=== PATIENT | female | born 1995 | race Caucasian/White ===

== ENCOUNTER → 2020-10-12 15:05 | Outpatient (BNVA) | payer BC, SELFPAY | PROVIDERS: Family Provider Family Medicine; Visit Provider Nurse Practitioner Women's Health | DX: Z01.419 Encounter for gynecological examination (general) (routine) without abnormal findings (principal) | CPT/HCPCS: 88175 ==

== ENCOUNTER 2022-03-29 14:40 | Inpatient (IN) | payer MEDICAID, SELFPAY ==
[2022-03-29] VITALS (38 sets, daily range): BP systolic 94–147; BP diastolic 54–82; PULSE 76–126; TEMP 36.9; O2SAT 93–100; BMI 28.7
[2022-03-29] MEDS: miSOPROStol 100 mcg tablet 25 MCG SUBLINGUAL ×2 (15:20→19:28)
[2022-03-29 15:37] LABS: Basophils % 0.2 %; Eosinophils % 0.2 %; Hematocrit 38.1 % (37.0-47.0); Hemoglobin 12.7 g/dL (11.5-15.3); Lymphocytes # 1.8 10^3/uL (0.8-4.8); Lymphocytes % 16.2 %; Mean Corpuscular HGB Conc 33.3 g/dL (30.0-36.0); Mean Corpuscular Hemoglobin 32.3 pg (28.0-34.0); Mean Corpuscular Volume 96.9 fl (81-99); Mean Platelet Volume 11.5 fL (7.4-10.4); Monocytes # 0.7 10^3/uL (0.2-0.9); Neutrophils # 8.65 10^3/uL (1.8-7.7); Neutrophils % 76.9 %; Nucleated Red Blood Cells % 0 %; Platelet Count 208 10^3/cmm (130-400); Red Blood Count 3.93 10^6/uL (4.1-5.3); Red Cell Distribution Width 14.3 % (12.1-15.1); White Blood Count 11.2 10^3/uL (4.0-10.0)
--- NOTE | 2022-03-29 18:11 | PM.OPHPUD ---
Labor & Delivery H&P Update Date of Procedure: March 29, 2022 Date H&P Performed: 03/27/22 Changes to previous documentation: Spontaneous rupture of membranes Admission Diagnosis: 26-year-old 2 para 1 at 37 weeks estimated gestational age presenting with spontaneous rupture of membranes Other information: The patient is an otherwise healthy 26-year-old 2 para 1-0-0-1 female who has had an unremarkable . Her blood type is O+. Her antibody screen is negative. She passed her glucose screen. She is GBS negative. She is rubella immune. The remainder of her labs are within normal limits. Her membranes were ruptured just prior to arrival to hospital. Related Problem List Diagnoses (1) 37 weeks gestation of : (2) Spontaneous rupture of membranes: Cytotec 25 mcg sublingual has been given. We will consider further augmentation of labor as needed.
[2022-03-29] MEDS: lactated ringers 1,000 ML 999 ML IV (20:18)
--- NOTE | 2022-03-29 20:48 | ANES.PREANE2 ---
Pre-Anesthetic Assessment Height/Weight: Height 1.68 m Weight 80.739 kg Pulse BP 82 103/64 03/29/22 20:25 03/29/22 20:25 Preop Diagnosis: labor pain epidural Familial anesthetic complications: none Was Beta Machelle taken within 24 hours: N/A Was Clonidine taken within 24 hours: N/A Social No alcohol and No tobacco Exam alert, oriented x 3, clear to auscultation bilaterally and regular rate & rhythm Airway Submandibular: within normal limits Cervical ROM: within normal limits Mallampati: Class II Dentition: full Pulmonary None reported CV/HEM None reported None reported Hepatic None reported GI None reported Metabolic None reported Musc/skel None reported Neuropsych None reported Anesthetic Plan ASA status: 2 Anesthesia: Regional (specify below) Risk of > 500 ml blood loss (7ml/kg in children): No Medications/Allergies Home Medications Medication Instructions Recorded Confirmed Last Taken Type No Known Home Medications 09/24/20 10/12/20 Unknown History Allergies Allergy/AdvReac Type Severity Reaction Status Date / Time amoxicillin Allergy ALGY-Hives Verified 10/12/20 14:34 Penicillins Allergy ALGY-Hives Verified 10/12/20 14:34 Current Medications Generic Name Dose Route Start Last Admin Trade Name Freq PRN Reason Stop Dose Admin Lactated Ringer's 1,000 mls @ 999 mls/hr 03/29/22 20:03 03/29/22 20:18 Lactated Ringers IV 999 mls/hr .Q1H1M PRN Administration PAIN PFSH Anesthesia Medical History (Updated 03/29/22 @ 18:16 by Drew Mo MD) No pertinent past medical history neghx: htn,dm,thyroid,dvt/pe Surgical History (Updated 10/12/20 @ 14:56 by Niharika Antony APN, FRANCISCA) History of surgical procedure on mouth age 3----this procedure had to be done 3 times as growth returned however she was told it was not malignant. 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 Alcohol use: Occasional Drug use: denies Female Reproductive History : 2 Data Anesthesia : 03/29/22 14:55 Short CBC 03/29/22 Range/Units 14:55 WBC 11.2 H (4.0-10.0) 10^3/uL Hgb 12.7 (11.5-15.3) g/dL Hct 38.1 (37.0-47.0) % MCV 96.9 (81-99) fl Plt Count 208 (130-400) 10^3/cmm Neut % (Auto) 76.9 % Neut # (Auto) 8.65 H (1.8-7.7) 10^3/uL Cardiac Studies: No Data to Display
--- NOTE | 2022-03-29 21:27 | P.ANES_ITS ---
Anesthesia Procedures Procedure/Date: 03/29/22 epidural Procedure Narrative: epidural complete, bolus given, epidural pump initiated with CONSUMER INSIGHTS INTERN education given, vitals taken during procedure using OBIX system and satisfactory throughout, patient admits to decrease pain, report of procedure to OB RN Epidural: Time Out Performed: Yes Consents Signed: Procedure Consent Consent: requested by attending/covering physician, from patient, risks and benefits reviewed and patient agrees to proceed Lumbar Level: L3-L4 Epidural position: sitting Epidural procedure: sterile prep of area, 1% lidocaine to numb the area (3 mL), 18 g needle, negative for paresthesia passed, neg for paresthesia, test dose given, 1.5% xylocaine 1:200k epi (5 mL), 0.2% Ropivacaine bolus ml (5 mL), placed PCEA, no systemic response, sterile dressing applied, L.U.D. no apparent complications and 0.2% Ropiavacaine @ mls/hr (13 mL/hr)
[2022-03-29] MEDS: dextrose 5%-lactated ringers 1,000 ML 125 ML IV (21:40)
[2022-03-29] MEDS: oxytocin 30 UNIT/500 ML BAG 600 UNIT IV (21:54)
--- NOTE | 2022-03-29 22:09 | P.PCNOB_ITS ---
Delivery Note: Date of delivery: March 29, 2022 Pre-delivery diagnoses: 26-year-old 2 para 1-0-0-1 at 37 weeks presenting with spontaneous rupture of membranes Post-delivery diagnoses: Status post spontaneous vaginal delivery Procedure: Spontaneous vaginal delivery Delivering Physician: Drew Mo Estimated blood loss (mL): 75 Pre-Delivery Course: The patient presented to the hospital within an hour of having spontaneous rupture of membranes. She was given Cytotec 25 mcg x 2. An epidural was placed. Immediately after the epidural she was noted to be complete. heart tones were typically category 1 throughout her labor process. Delivery: DELIVERY: The patient progressed to complete without difficulty. She delivered a female with a weight of 6 pounds 0 ounces with Apgars of 9, 9. The baby was delivered from the MARTHA position and placed on the mother's abdomen. The cord was then clamped and cut. There was no nuchal cord. There was no meconium. The placenta and 3 vessel cord were delivered intact shortly thereafter. The perineum and vaginal vault were carefully examined. A first- degree posterior midline tear was noted which was repaired with a single subcuticular etearf-wa-brjwo stitch. Both the mother and the baby were in stable condition. Post-Delivery Status: Good History History History 1 Term 1 Miscarriages/Ectopic 0 0 Living Children 1 A&P Assessment and plan (1) Spontaneous vaginal delivery: I anticipate routine care. Status: Acute Coding Level of Care Code Acute Cath Lab Radiological Technologist for Chg Fwd Diagnoses Spontaneous vaginal delivery O80
[2022-03-30] VITALS (12 sets, daily range): BP systolic 102–131; BP diastolic 58–90; PULSE 72–108; RESP 16–17; TEMP 36.6–37.1; O2SAT 97–98
[2022-03-30] MEDS: benzocaine-menthol 78 gm Canister 1 SPRAY TOPICAL (01:20)
[2022-03-30] MEDS: lanolin oint 7 gm 1 APPLIC TOPICAL (01:20)
[2022-03-30] MEDS: HYDROcodone-acetaminophen 5-325 mg Tablet PO (03:11)
[2022-03-30] MEDS: ibuprofen 800 mg tablet PO ×3 (09:27→20:18)
[2022-03-30] MEDS: docusate sodium 100 mg Capsule PO ×2 (09:27→17:43)
[2022-03-30] MEDS: prenatal vitamin Capsule 1 CAP PO (09:27)
--- NOTE | 2022-03-30 10:06 | P.DS_ITS ---
Discharge Providers EMOTIONAL DISABILITIES TEACHER Date of Admission: 03/29/22 14:40 Date of Discharge: 03/30/22 Attending Provider at Admission: Drew Mo MD Attending Provider at Discharge: Drew Mo MD Diagnoses at Discharge Discharge Diagnosis (1) Spontaneous vaginal delivery: Status: Acute (2) 37 weeks gestation of : Status: Acute (3) Spontaneous rupture of membranes: Status: Acute Reason for Visit Reason for Visit: ROM Hospital Course Hospital Course The patient presented to the hospital with spontaneous rupture of membranes which was confirmed with nitrazine strips. She is noted be grossly ruptured. She was placed on Cytotec 25 mcg sublingual. She progressed to complete. An epidural had been placed shortly before delivery. Her delivery was unremarkable. She had first-degree posterior midline tear. Her course was also unremarkable. She breast-fed well. Her pain was well controlled. Her bleeding was within normal limits. Information Peripartum Data: Delivery Method: Vaginal Physical Exam Narrative: The patient is alert. She appears comfortable. Her heart has a regular rate and rhythm with no murmurs appreciated. Lungs are clear to auscultation bilaterally. Her fundus is firm and below the umbilicus. History History History 1 Term 1 Miscarriages/Ectopic 0 0 Living Children 1 Discharge Data Studies Completed and Pending Pending at discharge Category Date Time Status Hemagram Timed Lab 03/30/22 10:07 Uncollected Laboratory Results WBC 11.2 10^3/uL (4.0-10.0) H 03/29/22 14:55 RBC 3.93 10^6/uL (4.1-5.3) L 03/29/22 14:55 Hgb 12.7 g/dL (11.5-15.3) 03/29/22 14:55 Hct 38.1 % (37.0-47.0) 03/29/22 14:55 MCV 96.9 fl (81-99) 03/29/22 14:55 MCH 32.3 pg (28.0-34.0) 03/29/22 14:55 MCHC 33.3 g/dL (30.0-36.0) 03/29/22 14:55 RDW 14.3 % (12.1-15.1) 03/29/22 14:55 Plt Count 208 10^3/cmm (130-400) 03/29/22 14:55 MPV 11.5 fL (7.4-10.4) H 03/29/22 14:55 Neut % (Auto) 76.9 % 03/29/22 14:55 Lymph % (Auto) 16.2 % 03/29/22 14:55 [place] % (Auto) 6.0 % 03/29/22 14:55 Eos % (Auto) 0.2 % 03/29/22 14:55 Baso % (Auto) 0.2 % 03/29/22 14:55 Neut # (Auto) 8.65 10^3/uL (1.8-7.7) H 03/29/22 14:55 Lymph # (Auto) 1.8 10^3/uL (0.8-4.8) 03/29/22 14:55 [place] # (Auto) 0.7 10^3/uL (0.2-0.9) 03/29/22 14:55 Eos # (Auto) 0.0 10^3/uL (0.0-0.8) 03/29/22 14:55 Baso # (Auto) 0.0 10^3/uL (0.0-0.1) 03/29/22 14:55 Nucleated RBC % (auto) 0 % 03/29/22 14:55 Nucleated RBCs # 0.0 /100WBC 03/29/22 14:55 Vitals Last Vital Signs Temp 98.0 F 03/30/22 09:28 Pulse 88 03/30/22 09:28 Resp 17 03/30/22 09:28 BP 116/72 03/30/22 09:28 Pulse Ox 97 03/30/22 09:28 Discharge Plan Discharge Patient Disposition: Home Condition: Stable Prescriptions: New ibuprofen 800 mg Tablet 800 mg PO TID Qty: 45 0RF -U 106.5-1 mg Capsule 1 cap PO DAILY Qty: 100 3RF Discharge Orders: Discharge Order (Routine); Ordered 03/30/22 Ordered By: Drew Mo Referrals: Drew Mo MD [Physician] - 6 Weeks Discharge Diet: Usual diet Discharge Activity: Limit activity as instructed Discharge Attestations EMOTIONAL DISABILITIES TEACHER Time Spent in Discharge Care*: less than 30 min Specific Discharge Activities: Specific discharge activities: educating patient Coding Level of Care Code Acute Tag Writer for Chg Fwd Diagnoses Spontaneous vaginal delivery O80 37 weeks gestation of Z3A.37 Spontaneous rupture of membranes
[2022-03-30 10:36] LABS: Hematocrit 39.4 % (37.0-47.0); Hemoglobin 12.9 g/dL (11.5-15.3); Mean Corpuscular HGB Conc 32.7 g/dL (30.0-36.0); Mean Corpuscular Hemoglobin 32.3 pg (28.0-34.0); Mean Corpuscular Volume 98.5 fl (81-99); Mean Platelet Volume 11.5 fL (7.4-10.4); Platelet Count 188 10^3/cmm (130-400); Red Cell Distribution Width 14.3 % (12.1-15.1); White Blood Count 16.9 10^3/uL (4.0-10.0)
--- NOTE | 2022-04-01 10:40 | ANE.PACU2 ---
Inpatient post-anesthesia follow up: Airway intact: Yes Vital signs: Temperature 98.3 F Pulse Rate 81 Respiratory Rate 16 Blood Pressure 115/81 Pulse Oximetry 98 Oxygen Delivery Me thod Room Air Oxygen Flow Rate Fraction of Inspir ed Oxygen Hydration adequate: Yes Nausea and vomiting: No Pain level: 2 Mental status: Baseline
== END 2022-03-30 23:25 | disposition home or self-care (01) | DRG 807 ==
LOC: OPOB 03-30 09:02 → OBGYN 03-30 09:03
PROVIDERS: Admitting Provider Family Medicine; Visit Provider Family Medicine
DX: O70.0 First degree perineal laceration during delivery (principal); Z37.0 Single live birth; O99.334 Smoking (tobacco) complicating childbirth; Z3A.37 37 weeks gestation of pregnancy; Z88.0 Allergy status to penicillin
CPT/HCPCS: 12345; 36415; 59025; 59409; 85025; 85027; 99211; J2795

== ENCOUNTER 2023-02-12 10:18 | Outpatient (CLI) | payer MEDICAID, SELFPAY ==
[2023-02-12 10:35] LABS: Erythrocyte Sedimentation Rate < 1 mm/hr (0-15)
[2023-02-12 10:38] LABS: Basophils # 0.1 10^3/uL (0.0-0.1); Basophils % 0.7 %; Eosinophils # 0.1 10^3/uL (0.0-0.8); Hematocrit 42.9 % (37.0-47.0); Hemoglobin 13.7 g/dL (11.5-15.3); Lymphocytes # 2.5 10^3/uL (0.8-4.8); Lymphocytes % 25.9 %; Mean Corpuscular HGB Conc 31.9 g/dL (30.0-36.0); Mean Corpuscular Volume 94.1 fl (81-99); Mean Platelet Volume 11.7 fL (7.4-10.4); Monocytes # 0.6 10^3/uL (0.2-0.9); Monocytes % 6.3 %; Neutrophils # 6.24 10^3/uL (1.8-7.7); Neutrophils % 65.9 %; Nucleated Red Blood Cells % 0 %; Platelet Count 240 10^3/cmm (130-400); Red Blood Count 4.56 10^6/uL (4.1-5.3); Red Cell Distribution Width 13.6 % (12.1-15.1); White Blood Count 9.5 10^3/uL (4.0-10.0)
[2023-02-12 11:24] LABS: Alanine Aminotransferase 15 U/L (0-33); Albumin Level 4.6 g/dL (3.5-5.2); Alkaline Phosphatase 62 U/L (35-105); Anion Gap 16.8 (5-19); Aspartate Amino Transferase 17 U/L (0-32); Blood Urea Nitrogen 14 mg/dL (6-20); Calcium 9.2 mg/dL (8.5-10.5); Carbon Dioxide 25 mmol/L (22-29); Chloride 102 mmol/L (98-107); Globulin 2.8 g/dL (1.3-4.6); Glomerular Filtration Rate 100.4 mL/min (90-130); Glucose 79 mg/dL (65-115); Osmolality Calculated 287 mOsm/kg (285-295); Potassium 4.8 mmol/L (3.5-5.1); Sodium 139 mmol/L (136-145); Thyroid Stimulating Hormone 0.81 uIU/mL (0.27-4.20); Total Bilirubin 0.5 mg/dL (0.15-1.2); Total Protein 7.4 g/dL (6.6-8.7)
[2023-02-13 13:21] LABS: Leukemia Profile (BBPL) See Report; Lymphoma Profile (BBPL) See Report
[2023-02-13 14:20] LABS: EBV IGM TEST <36.00 U/mL; EBV Viral Capsid AB IGM <36.00 U/mL
== END 2023-02-12 10:19 | disposition home or self-care (01) ==
LOC: LAB 10:21
PROVIDERS: PCP Family Medicine; Visit Provider Family Medicine
DX: R22.1 Localized swelling, mass and lump, neck (principal)
CPT/HCPCS: 36415; 80053; 84443; 85025; 85651; 86664; 86665; 88184; 88185

== ENCOUNTER 2023-02-28 17:12 | Outpatient (CLI) | payer MEDICAID, SELFPAY ==
--- NOTE | 2023-02-28 17:00 | US_ITS ---
WS: [id number] ULTRASOUND SOFT TISSUES RIGHT neck. HISTORY: R22.1 - Localized swelling, mass and lump, neck COMPARISON: None available. TECHNIQUE: 2-D and color Doppler imaging is submitted. Ultrasound is directed to the palpable area along the RIGHT neck which is just inferior to the right ear. This palpable area corresponds to a normal lymph node measuring 11 x 9 x 3 mm. Normal fatty hilu m. Normal cortex. No suspicious mass. US/US soft tissue head neck [id number] IMPRESSION: Palpable area along the RIGHT neck corresponds to a normal lymph node.
== END 2023-02-28 17:13 | disposition home or self-care (01) ==
PROVIDERS: PCP Family Medicine; Visit Provider Family Medicine
DX: R59.0 Localized enlarged lymph nodes
CPT/HCPCS: 76536

== ENCOUNTER 2023-02-28 17:13 | Outpatient (CLI) | payer MEDICAID, SELFPAY ==
--- NOTE | 2023-02-28 17:30 | US_ITS ---
WS: [id number] THYROID ULTRASOUND HISTORY: R22.1 - Localized swelling, mass and lump, neck COMPARISON: None available. Right lobe: 1.5 cm x 1.9 cm x 5.9 cm (w x ap x l). Volume: 8.5 cm3. Normal size thyroid. There are a few small colloid cysts which are less than a centimeter. No solid m ass or echogenic foci. Minimally coarse echotexture. No adenopathy. Left lobe: 1.6 cm x 1.5 cm x 5.4 cm (w x ap x l). Volume: 6.5 cm3. Normal size thyroid. There are a few small colloid cyst. No solid mass. No increased vascularity. Mil d coarse echotexture. Isthmus: 0.3 cm. US/US thyroid [id number] IMPRESSION: 1. No solid or suspicious masses or echogenic foci. 2. Bilateral very small colloid cysts, benign.
== END 2023-02-28 17:14 | disposition home or self-care (01) ==
PROVIDERS: PCP Family Medicine; Visit Provider Family Medicine
DX: R59.0 Localized enlarged lymph nodes (principal)
CPT/HCPCS: 76536

== ENCOUNTER 2023-10-04 10:47 | Emergency (ER) | payer OTHER, SELFPAY ==
[2023-10-04 10:49] VITALS: BP 143/75; PULSE 86; RESP 15; TEMP 36.9; O2SAT 100
--- NOTE | 2023-10-04 10:49 | ED_ITS ---
HPI - Abdominal Pain General: Chief Complaint: Abdominal Pain Stated Complaint: abd pain Time Seen by Provider: 10/04/23 10:49 History of Present Illness: 28-year-old female presents emergency department with complaints of low abdominal pain that started last night after sexual activity. She states she has had intermittent lower abdominal cramping that she describes as a 3 out of 10. She states she has also had intermittent nonproductive cough and low rib pain. She denies vaginal bleeding or discharge. Review of Systems 2 General: Reports: 10 or more systems reviewed and unremarkable except in HPI and below Resp: Reports: non-productive cough GI: Reports: abdominal pain [facility] ED PFSH: Medical History No pertinent past medical history neghx: htn,dm,thyroid,dvt/pe Surgical History History of surgical procedure on mouth age 3----this procedure had to be done 3 times as growth returned however she was told it was not malignant. 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 Alcohol use: Occasional Drug use: denies Physical Exam Narrative: EXAM NARRATIVE: Constitutional: the patient appeared well nourished and normally developed. Vital signs as documented. HENMT: Head exam is unremarkable. Neck is without jugular venous distension, thyromegaly, or carotid bruits. Carotid upstrokes are brisk bilaterally. Eye: No scleral icterus or corneal arcus noted Resp: Lungs are clear to auscultation and percussion. Cardio: Cardiac exam reveals the PMI to be normally sized and situated. Rhythm is regular. First and second heart sounds normal. No murmurs, rubs or gallops. GI: Abdominal exam reveals normal bowel sounds, no masses, no organomegaly and no aortic enlargement. Soft, slight tender to palpation to the lower left and right quadrants.. No obvious palpable masses noted. No hepatomegaly appreciated. Extremity: Extremities are non-edematous and both femoral and pedal pulses are normal. Moves all extremities well, she has sensation in all extremities. Neuro: Alert and oriented x4, person, place, time and situation. Cranial nerves II through XII are grossly intact, there is no focal neurological deficits that I can appreciate at present. Motor strength in the upper and lower extremities are equal and bilateral 5/5. Psych: Cooperative, calm, normal thought process, appropriate judgment. Skin: No lesions, rashes. Course Vital Signs: Vital signs: Vital Signs Temperature 98.5 F 10/04/23 10:49 Pulse Rate 86 10/04/23 10:49 Respiratory Rate 15 10/04/23 10:49 Blood Pressure 143/75 10/04/23 10:49 Pulse Oximetry 100 10/04/23 12:54 Oxygen Delivery Me thod Room Air 10/04/23 10:49 MDM - Abdominal Pain Medical Decision Making Physical exam completed and documented, radiograph examination ordered for the abdomen and chest x-ray for the cough. I suspect this is most likely musculoskeletal abdominal wall muscle strain from her recent increased activity. Lab Data I reviewed the patient's lab results. 10/04/23 10:55 10/04/23 10:55 Labs/Radiology: Radiology Impressions Abdomen X-Ray 10/04/23 11:58 IMPRESSION: No acute findings. Chest X-Ray 10/04/23 11:58 IMPRESSION: No acute findings. Laboratory Results WBC 9.84 10^3/uL (3.29-11.43) 10/04/23 10:55 RBC 4.41 10^6/uL (3.85-5.65) 10/04/23 10:55 Hgb 13.30 g/dL (11.27-16.99) 10/04/23 10:55 Hct 41.1 % (36-47) 10/04/23 10:55 MCV 93.2 fl (85-98) 10/04/23 10:55 MCH 30.2 pg (27-33) 10/04/23 10:55 MCHC 32.4 g/dL (30-55) 10/04/23 10:55 RDW 14.1 % (12.1-15.1) 10/04/23 10:55 Plt Count 210 10^3/cmm (157-399) 10/04/23 10:55 MPV 12.2 fL (7.4-10.4) H 10/04/23 10:55 Neut % (Auto) 68.4 % 10/04/23 10:55 Lymph % (Auto) 21.5 % 10/04/23 10:55 [place] % (Auto) 8.3 % 10/04/23 10:55 Eos % (Auto) 1.0 % 10/04/23 10:55 Baso % (Auto) 0.5 % 10/04/23 10:55 Neut # (Auto) 6.72 10^3/uL (1.8-7.7) 10/04/23 10:55 Lymph # (Auto) 2.1 10^3/uL (0.8-4.8) 10/04/23 10:55 [place] # (Auto) 0.8 10^3/uL (0.2-0.9) 10/04/23 10:55 Eos # (Auto) 0.1 10^3/uL (0.0-0.8) 10/04/23 10:55 Baso # (Auto) 0.1 10^3/uL (0.0-0.1) 10/04/23 10:55 Nucleated RBC % (auto) 0 % 10/04/23 10:55 Nucleated RBCs # 0.0 /100WBC 10/04/23 10:55 Sodium 136 mmol/L (136-145) 10/04/23 10:55 Potassium 3.9 mmol/L (3.5-5.1) 10/04/23 10:55 Chloride 101 mmol/L (98-107) 10/04/23 10:55 Carbon Dioxide 25 mmol/L (22-29) 10/04/23 10:55 Anion Gap 13.9 (5-19) 10/04/23 10:55 BUN 12 mg/dL (6-20) 10/04/23 10:55 Creatinine 0.7 mg/dL (0.5-0.9) 10/04/23 10:55 GFR Calculation 99.6 mL/min (90-130) 10/04/23 10:55 Glucose 85 mg/dL (65-115) 10/04/23 10:55 Calculated Osmolality 281 mOsm/kg (285-295) L 10/04/23 10:55 Calcium 8.5 mg/dL (8.5-10.5) 10/04/23 10:55 Total Bilirubin 0.7 mg/dL (0.15-1.2) 10/04/23 10:55 AST 17 U/L (0-32) 10/04/23 10:55 ALT 15 U/L (0-33) 10/04/23 10:55 Alkaline Phosphatase 68 U/L (35-105) 10/04/23 10:55 Total Protein 7.2 g/dL (6.6-8.7) 10/04/23 10:55 Albumin 4.4 g/dL (3.5-5.2) 10/04/23 10:55 Globulin 2.8 g/dL (1.3-4.6) 10/04/23 10:55 Lipase 25 U/L (13-60) 10/04/23 10:55 HCG, Qual Negative (Negative) 10/04/23 11:13 Urine Color Yellow (Yellow) 10/04/23 11:13 Urine Appearance Clear (CLEAR) 10/04/23 11:13 Urine pH 6 (5-7) 10/04/23 11:13 Ur Specific Happy 1.010 (1.005-1.030) 10/04/23 11:13 Urine Protein Neg (Negative) 10/04/23 11:13 Urine Glucose (UA) Norm (Normal) 10/04/23 11:13 Urine Ketones Negative (Negative) 10/04/23 11:13 Urine Blood Neg (Negative) 10/04/23 11:13 Urine Nitrate Negative (Negative) 10/04/23 11:13 Urine Bilirubin Neg (Negative) 10/04/23 11:13 Urine Urobilinogen Norm mg/dL (Negative) 10/04/23 11:13 Ur Leukocyte Esterase Negative (Negative) 10/04/23 11:13 Group A Strep Rapid Negative (Negative) 10/04/23 12:00 All radiology interpretation(s) finalized by discharge Discharge Plan Discharge Patient Disposition: Home Clinical Impression: Abdominal pain, Strain of abdominal wall Condition: Stable Prescriptions: New cyclobenzaprine 10 mg tablet 10 mg PO Q12H Qty: 7 0RF No Action escitalopram oxalate [Lexapro] 20 mg tablet 20 mg PO DAILY azithromycin 250 mg tablet See Rx Instructions .ROUTE .COMPLEX Rx Instructions: TAKE 2 TABLETS BY MOUTH ON DAY 1, THEN TAKE 1 TABLET DAILY ON DAYS 2-5 Discharge Orders: Discharge ED (Routine); Ordered 10/04/23 Ordered By: Gerardo Figueredo Referrals: Misha Myers MD [Hospitalist] - Discharge Diet: Advance as tolerated Discharge Activity: Resume usual activity Patient Instructions: Abdominal Pain (ED), Opioid Safety, Pain Management Activity Restrictions/Additional Instructions: Activity Restrictions/Additional Instructions: Thank you for choosing [facility] for your healthcare needs today. Please realize that you were seen in the Emergency Department and that we are providing you with an emergency medical screening exam and this may not be complete and all inclusive of all the testing and or medical work-up that you may need to determine your ailment or severity of your illness. It is very important that you follow-up as instructed with your Primary care provider or Specialist for additional evaluation and to discuss your medical treatment plan. You may return to the Emergency Department should you have concerns or if your condition changes or worsens in any way. Coding Level of Care Code ED Lead Ios Developer for Jimmy Benitez
[2023-10-04 11:17] LABS: Basophils # 0.1 10^3/uL (0.0-0.1); Basophils % 0.5 %; Eosinophils # 0.1 10^3/uL (0.0-0.8); Hematocrit 41.1 % (36-47); Lymphocytes # 2.1 10^3/uL (0.8-4.8); Lymphocytes % 21.5 %; Mean Corpuscular HGB Conc 32.4 g/dL (30-55); Mean Corpuscular Hemoglobin 30.2 pg (27-33); Mean Corpuscular Volume 93.2 fl (85-98); Mean Platelet Volume 12.2 fL (7.4-10.4); Monocytes # 0.8 10^3/uL (0.2-0.9); Monocytes % 8.3 %; Neutrophils # 6.72 10^3/uL (1.8-7.7); Neutrophils % 68.4 %; Nucleated Red Blood Cells % 0 %; Platelet Count 210 10^3/cmm (157-399); Red Blood Count 4.41 10^6/uL (3.85-5.65); Red Cell Distribution Width 14.1 % (12.1-15.1); White Blood Count 9.84 10^3/uL (3.29-11.43)
[2023-10-04 11:20] LABS: Alanine Aminotransferase 15 U/L (0-33); Albumin Level 4.4 g/dL (3.5-5.2); Alkaline Phosphatase 68 U/L (35-105); Anion Gap 13.9 (5-19); Aspartate Amino Transferase 17 U/L (0-32); Blood Urea Nitrogen 12 mg/dL (6-20); Calcium 8.5 mg/dL (8.5-10.5); Carbon Dioxide 25 mmol/L (22-29); Chloride 101 mmol/L (98-107); Globulin 2.8 g/dL (1.3-4.6); Glomerular Filtration Rate 99.6 mL/min (90-130); Glucose 85 mg/dL (65-115); Lipase 25 U/L (13-60); Osmolality Calculated 281 mOsm/kg (285-295); Potassium 3.9 mmol/L (3.5-5.1); Sodium 136 mmol/L (136-145); Total Bilirubin 0.7 mg/dL (0.15-1.2); Total Protein 7.2 g/dL (6.6-8.7)
[2023-10-04 11:24] LABS: Add Urine Microscopic? NO; Charge for UA Resulting for Rev
[2023-10-04 11:28] LABS: HCG Qualitative Urine. Negative (Negative)
[2023-10-04 11:31] LABS: Bilirubin Urine Neg (Negative); Blood Urine Neg (Negative); Glucose Urine UA Norm (Normal); Ketones Urine Negative (Negative); Leukocyte Esterase Urine Negative (Negative); Nitrate Urine Negative (Negative); Protein Urine Neg (Negative); Urine Appearance Clear (CLEAR); Urine Color Yellow (Yellow); Urobilinogen Urine Norm (Negative); pH Urine 6 (5-7)
--- NOTE | 2023-10-04 11:58 | XRR_ITS ---
PROCEDURE INFORMATION: Exam: XR Chest Exam date and time: 10/04/2023 12:09 PM Age: 28 years old Clinical indication: Cough; Additional info: Cough congestion TECHNIQUE: Imaging protocol: Radiologic exam of the chest. Views: 2 views. COMPARISON: CR (ABDOMEN, ) 10/04/2023 12:06 PM FINDINGS: Lungs: Unremarkable. No consolidation. Pleural spaces: Unremarkable. No pleural effusion. No pneumothorax. Heart/Mediastinum: Unremarkable. No cardiomegaly. Bones/joints: Unremarkable. XR/XR chest 2V* [id number] IMPRESSION: No acute findings.
--- NOTE | 2023-10-04 11:58 | XRR_ITS ---
PROCEDURE INFORMATION: Exam: XR Abdomen Exam date and time: 10/04/2023 12:06 PM Age: 28 years old Clinical indication: Abdominal pain; Localized; Lower; Additional info: Low abd pain TECHNIQUE: Imaging protocol: Radiologic exam of the abdomen. Views: Frontal supine view of the abdomen. 1 View. COMPARISON: No relevant prior studies available. FINDINGS: Gastrointestinal tract: Normal. No bowel dilation. Bones/joints: Unremarkable. XR/XR abdomen 1V* [id number] IMPRESSION: No acute findings.
[2023-10-04 12:16] LABS: Rapid Strep A Test Negative (Negative)
[2023-10-04] MEDS: ketorolac 30 mg/mL INJ IVP (12:41)
[2023-10-04] MEDS: orphenadrine 30 mg/mL Inj 2 mL 60 MG IVP (12:41)
[2023-10-04 12:54] VITALS: O2SAT 100
== END 2023-10-04 12:59 | disposition home or self-care (01) ==
PROVIDERS: Emergency Provider Internal Medicine; PCP Family Medicine
DX: S39.011A Strain of muscle, fascia and tendon of abdomen, initial encounter (principal); Z87.891 Personal history of nicotine dependence; X58.XXXA Exposure to other specified factors, initial encounter
CPT/HCPCS: 36415; 71046; 74018; 80053; 81003; 81025; 83690; 85025; 87081; 87880; 96374; 96375; 99284; J1885; J2360

== ENCOUNTER 2023-10-21 07:03 | Emergency (ER) | payer OTHER, SELFPAY ==
[2023-10-21] VITALS (7 sets, daily range): BP systolic 105–141; BP diastolic 60–87; PULSE 70–83; TEMP 36.7; O2SAT 94–98; BMI 28.1
[2023-10-21] MEDS: famotidine 20 mg/2 mL INJ 40 MG IVP (07:40)
[2023-10-21] MEDS: dexamethasone 10 mg/mL INJ IVP (07:40)
[2023-10-21] MEDS: diphenhydrAMINE 50 mg/mL SDV 1mL IVP (08:27)
--- NOTE | 2023-10-21 09:29 | ED_ITS ---
HPI - Allergic Reaction General: Chief complaint: Allergic Reaction Stated complaint: possible allergic reaction Time Seen by Provider: 10/21/23 07:09 Source: patient Mode of arrival: ambulatory History of Present Illness: HPI narrative: 28-year-old female presents emergency room with facial swelling particularly of her lips that began this morning. She does not recall anything or that she ate drank or took or ingested that was new or different. She is not having difficulty breathing or swallowing. Is not previously had episodes like this she has some mild pruritus but no real hives she had a little bit of skin change on her hip particularly her right hip. She not previously had episodes like this she took some Benadryl at home before coming to the emergency room. 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 MD complaint: allergic reaction and facial swelling Onset (ago): minute(s) Exposure: unknown Associated symptoms: Reports facial swelling; Deny abdominal pain, difficulty breathing, dysphagia, dizziness, hoarseness, itching, lip swelling, nausea, rash, tongue swelling or vomiting Severity: mild Treatment prior to arrival: benadryl Review of Systems Const: Denies: fever(s) or chills ENMT: Denies: hoarseness Card: Denies: chest pain Resp: Denies: dyspnea GI: Denies: abdominal pain, nausea, vomiting or dysphagia : Denies: dysuria, urinary frequency or urinary urgency Musc: Denies: neck pain or back pain Skin/Breast: Denies: rash Neuro: Denies: dizziness All/Imm: Reports: facial swelling; Denies: tongue swelling PFSH ED PFSH: Medical History No pertinent past medical history neghx: htn,dm,thyroid,dvt/pe Surgical History History of surgical procedure on mouth age 3----this procedure had to be done 3 times as growth returned however she was told it was not malignant. 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 Alcohol use: Occasional Drug use: denies Physical Exam Const: GENERAL APPEARANCE: cooperative and comfortable ORIENTATION/CONSCIOUSNESS: Yes awake, Yes oriented to person, Yes oriented to place and Yes oriented to time HENMT: COMMON NORMALS: normocephalic, atraumatic and hearing grossly normal bi laterally HEAD & SCALP: normocephalic and atraumatic FACE & SINUS: edema (Lips upper greater than lower) Resp: COMMON NORMALS: normal respiratory effort, No retractions, No use of accessory muscles and clear to auscultation bilaterally AUSCULTATION: clear to auscultation bilaterally Cardio: COMMON NORMALS: regular rate, regular rhythm and No murmurs present (Cardio) RATE: regular rate RHYTHM: regular rhythm GI: COMMON NORMALS: Soft to palpation and No hepatosplenomegaly present AUSCULTATION: Yes normoactive bowel sounds PALPATION: Yes Soft to palpation, No Tenderness to palpation present (GI), No Guarding due to palpation present (GI) and Yes No hepatosplenomegaly present Extremity: COMMON NORMALS: normal to inspection, capillary refill normal, no clubbing, cyanosis or edema, no calf tenderness and no pedal edema Neuro: SENSORIUM/ORIENTATION: Yes oriented to person, Yes oriented to place and Yes oriented to time Skin: OTHER: Facial swelling no highs Course Vital Signs: Vital signs: Vital Signs Temperature 98.1 F 10/21/23 07:15 Pulse Rate 79 10/21/23 09:53 Blood Pressure 121/70 10/21/23 09:53 Pulse Oximetry 94 10/21/23 09:53 Oxygen Delivery Me thod Room Air 10/21/23 09:30 MDM - Allergic Reaction Medical Decision Making Symptoms waxed and waned with treatments here in the emergency room she is given initially dexamethasone and Pepcid starting to better than worsen given Benadryl improved slightly and then she felt like the swelling increased she never had any hoarseness stridor or wheezing. She would prefer to go home we will discharge her home on steroid taper cetirizine 20 mg twice daily Benadryl as needed return if has difficulty breathing swallowing or speaking Medical Records I reviewed the patient's medical records. Lab Data I reviewed the patient's lab results. All radiology interpretation(s) finalized by discharge Discharge Plan Discharge Patient Disposition: Home Clinical Impression: Allergic reaction Condition: Stable Prescriptions: New prednisone 20 mg tablet 20 mg PO TID Qty: 15 0RF Rx Instructions: 1 p.o. 3 times daily x3 days, 1 p.o. twice daily x2 days, 1 p.o. daily x2 days No Action escitalopram oxalate [Lexapro] 20 mg tablet 20 mg PO DAILY Discharge Orders: Discharge ED (Routine); Ordered 10/21/23 Ordered By: Fox Elizalde Referrals: Drew Mo MD [Primary Care Provider] - Patient Instructions: Opioid Safety, Pain Management Activity Restrictions/Additional Instructions: Thank you for choosing [facility] for your healthcare needs today. Please realize this is an emergency room and that we are providing you with a medical screening exam and this may not be complete and all inclusive of all the testing and or work up that you may need to determine your ailment or severity of your illness. It is very important that you follow up as instructed or that you return to the Emergency Department should you have concerns or if your condition changes or worsens in any way. You are seen today for an allergic reaction the swelling is limited to your lips. We discussed potentially observation in the hospital you preferred to discharge home recommend you use [id number] cetirizine and/or Benadryl. Also start the oral steroid taper this evening. If you have worsening symptoms difficulty swallowing speaking wheezing or any trouble breathing return to the emergency room Coding Level of Care Code ED Bi Manager for Jimmy Benitez
== END 2023-10-21 09:55 | disposition home or self-care (01) ==
PROVIDERS: Emergency Provider Family Medicine; PCP Family Medicine
DX: T78.40XA Allergy, unspecified, initial encounter (principal); Z87.891 Personal history of nicotine dependence; X58.XXXA Exposure to other specified factors, initial encounter
CPT/HCPCS: 96374; 96375; 99284; J1100; J1200; J3490